=== PATIENT | female | born 1965 | race Caucasian/White ===

== ENCOUNTER 2017-10-19 18:55 | Emergency (ER) | payer MEDICAID ==
[~2017-10-19] VITALS: Ht 162.6 cm; Wt 79.4 kg
[2017-10-19] MEDS ORDERED: KETOROLAC TROMETHAMINE 15 MG/ML VIAL ONE (19:51)
[2017-10-19 19:52] LABS: BASOPHILS # (AUTO) 0.3 /CMM (0.0-0.2); BASOPHILS % (AUTO) 3.8 % (0.0-2.0); EOSINOPHILS % (AUTO) 1.2 % (0.0-6.0); HEMATOCRIT 38 % (33-45); HEMOGLOBIN 12.7 g/dL (11.5-14.8); LYMPHOCYTES # (AUTO) 2.1 /CMM (0.8-4.8); LYMPHOCYTES % (AUTO) 26.8 % (20.0-44.0); MEAN CORPUSCULAR HGB CONC 34 g/dl (31.0-36.0); MEAN CORPUSCULAR VOLUME 82 fL (82-100); MONOCYTES # (AUTO) 0.4 /CMM (0.1-1.30); MONOCYTES % (AUTO) 5.4 % (2.0-12.0); NEUTROPHILS % (AUTO) 62.8 % (43.0-81.0); PLATELET COUNT (AUTO) 206 /CMM (150-450); RDW COEFFICIENT OF VARIATION 19.9 (11.5-15.0); RED BLOOD CELL COUNT(AUTO) 4.62 MIL/uL (4.0-5.2); WHITE BLOOD COUNT (AUTO) 7.9 K/uL (4.3-11.0)
--- NOTE | 2017-10-19 19:54 | NUR ---
PT PRESENTED TO THE ER WITH A C/O GENERALIZED ABD PAIN. PT AMBULATED TO ER BED #2. 20G LFA IV INSERTED. BLOOD WAS DRAWN AND SENT TO LAB.
--- NOTE | 2017-10-19 19:56 | NUR ---
US TECH IS AT THE BEDSIDE.
[2017-10-19] MEDS ORDERED: KETOROLAC TROMETHAMINE INJ 30 MG/ML VIAL IV ONE (20:00)
[2017-10-19] MEDS ORDERED: IV NS 0.9% 1,000 ML BAG IV ONE (20:00)
--- NOTE | 2017-10-19 20:15 | NUR ---
PT IS UNABLE TO GIVE A URINE SAMPLE.
[2017-10-19 20:24] LABS: ALBUMIN 3.6 g/dL (3.4-5.0); BILIRUBIN,TOTAL 0.2 mg/dL (0.2-1.0); CALCIUM, SERUM 8.5 mg/dL (8.5-10.1); CREATININE 0.8 mg/dL (0.6-1.3); POTASSIUM 3.5 mmol/L (3.5-5.1); TOTAL PROTEIN, SERUM 7.7 g/dL (6.4-8.2)
[2017-10-19] MEDS ORDERED: MORPHINE SULFATE INJ 4 MG/ML DISP.SYRIN ONE (20:29)
[2017-10-19] MEDS ORDERED: ONDANSETRON HCL/PF 4 MG/2 ML VIAL ONE (20:29)
--- NOTE | 2017-10-19 20:29 | NUR ---
PT IS C/O ABD PAIN. PT STATED THAT THE PAIN MEDICATION WAS NOT WORKING. DR. PROCTOR NOTIFIED.
[2017-10-19] MEDS ORDERED: MORPHINE SULFATE INJ 2 MG/ML DISP.SYRIN IV ONE ×2 (20:30→21:00)
[2017-10-19] MEDS ORDERED: ONDANSETRON HCL/PF - ER 4 MG/2 ML VIAL IM ONE (21:00)
--- NOTE | 2017-10-19 21:03 | NUR ---
PT DOES NOT WANT TO GIVE A URINE SAMPLE.
[2017-10-19 21:34] VITALS: BP 137/76
== END 2017-10-19 21:34 | disposition home or self-care (01) ==
LOC: ER 19:13
DX: R10.11 Right upper quadrant pain (principal); I10 Essential (primary) hypertension
CPT/HCPCS: 36415; 76705-TC; 80048-TC; 80076-TC; 83690-TC; 85025-TC; A4606; J1885; J2270; J2405; J7030; Z7610